=== PATIENT | male | born 1990 | race Caucasian/White ===

== ENCOUNTER 2017-03-30 15:27 | Emergency (ER) | payer BC ==
[~2017-03-30] VITALS: Ht 177.8 cm; Wt 108.0 kg
[2017-03-30 15:50] LABS: HEMATOCRIT 43.9 % (38.0-50.0); MCH 28.7 PG (29.0-34.0); MCHC 33.3 G/DL (30.0-36.0); MCV 86.4 FL (86-99); MEAN PLAT.VOLUME 10.8 uM^3 (9.0-12.4); PLATELET COUNT 284 K/uL (156-360); RBC DIS.WIDTH-CV 12.9 % (11.8-14.6); RBC DIS.WIDTH-SD 40.5 % (39-53); RED BLOOD COUNT 5.08 M/uL (4.00-5.50); WHITE BLOOD COUNT 13.9 K/uL (4.1-10.2)
[2017-03-30 16:00] LABS: CHLORIDE 107 mEq/L (99-109); POTASSIUM 4.1 mEq/L (3.7-5.4); SODIUM 140 mEq/L (136-147)
[2017-03-30 16:03] LABS: GLUCOSE 99 mg/dL (70-99)
[2017-03-30 16:04] LABS: ANION GAP 11 MEQ/L (2-14); TOTAL BILIRUBIN 0.6 mg/dL (0.0-1.0)
[2017-03-30 16:06] LABS: ALKALINE PHOSPHATASE 85 IU/L (3-129); GFR ESTIMATE (CALCULATED) > 59 mL/min/
[2017-03-30 16:07] LABS: UREA NITROGEN (BUN) 14 mg/dL (9-23)
[2017-03-30 16:34] LABS: LIPASE 9 U/L (1.0-51.0)
[2017-03-30 16:59] LABS: BILIRUBIN NEGATIVE; BLOOD NEGATIVE; COLOR YELLOW ((YELLOW)); GLUCOSE (STRIP) NEGATIVE; KETONES NEGATIVE; LEUKOCYTES NEGATIVE; NITRITE NEGATIVE; PROTEIN (STRIP) NEGATIVE; SPECIFIC GRAVITY 1.027 (1.000-1.030); UROBILINOGEN 0.2 MG/DL (0.2-1.0)
[2017-03-30 17:00] LABS: ADD MIUA? NO
[2017-03-30 17:01] LABS: UCUL ADDED? NO
[2017-03-30] MEDS ORDERED: ZOFRAN ODT4 MG PO (19:12)
[2017-03-30] MEDS ORDERED: PERCOCET 5/31 TABLET PO (19:12)
[2017-03-30 19:20] VITALS: BP 122/88
== END 2017-03-30 19:24 | disposition home or self-care (01) ==
LOC: EME 15:27
DX: K80.20 Calculus of gallbladder without cholecystitis without obstruction (principal); Z72.0 Tobacco use
CPT/HCPCS: 71020; 74177; 80053; 81003; 83690; 85027; 99281; 99284; J2270; J2405; J3010; J7030